=== PATIENT | male | born 1990 | race Caucasian/White ===

== ENCOUNTER 2024-09-09 14:06 | Emergency (ER) | payer OTHER ==
[2024-09-09 14:17] VITALS: BP 119/79; PULSE 75; RESP 20; TEMP 98.6; BMI 30.7
[2024-09-09] MEDS ORDERED: KETOROLAC TROMETHAMINE 30 MG/1 ML VIAL ONE (15:19)
[2024-09-09] MEDS ORDERED: METHOCARBAMOL 500 MG TABLET ONE (15:19)
[2024-09-09] MEDS ORDERED: LIDOCAINE 4% PATCH TP ONE (15:19)
[2024-09-09] MEDS: LIDOCAINE 4% PATCH TP ONE (15:23)
[2024-09-09] MEDS: KETOROLAC TROMETHAMINE 30 MG/1 ML VIAL IM ONE (15:23)
[2024-09-09] MEDS: METHOCARBAMOL 500 MG TABLET PO ONE (15:23)
[2024-09-09 15:32] LABS: URINE APPEARANCE CLEAR; URINE BILIRUBIN NEGATIVE (NEGATIVE); URINE COLOR YELLOW; URINE GLUCOSE (UA) NEGATIVE (NEGATIVE); URINE KETONE TRACE (NEGATIVE); URINE LEUK ESTERASE NEGATIVE (NEGATIVE); URINE NITRITE NEGATIVE (NEGATIVE); URINE PROTEIN NEGATIVE (NEGATIVE)
== END 2024-09-09 19:15 | disposition left against medical advice (07) ==
LOC: JER 14:06
PROC: 3E0233Z Introduction of Anti-inflammatory into Muscle, Percutaneous Approach (ICD-10-PCS; principal; 2024-09-09)
DX: M54.50 Low back pain, unspecified (principal); G89.29 Other chronic pain; R20.2 Paresthesia of skin; X50.0XXA Overexertion from strenuous movement or load, initial encounter
CPT/HCPCS: 72131-TC; 81003; 87086; 99285-25